=== PATIENT | male | born 1935 | race Caucasian/White ===

== ENCOUNTER → 2016-11-04 | Outpatient (REF) ==
[~2016-11-04] MED LIST: ALBUTEROL0.83 MG/ML IH; AMBIEN 5MG TABLE5 MG PO; ASPIRIN 32325 MG/TAB PO; ATROVENT I0.2 MG/1 M IH; BROVANA15 MCG/2 M IH; COREG 6.256.25 MG/TA PO; FLOMAX 0.40.4 MG/CAP PO; IMDUR 60MG60 MG/TAB PO; LORAINT PO; MELAT3MGTAB PO; Melatonin PO; NORVASC 5MG5 MG/TAB PO; PLAVIX 75MG TAB75 MG PO; PROAIR HFA0.09 MG/AC IH; PULMICORT0.5 MG/2 M IH; ROXANOL 20MG20 MG/ML SL; TYLENOL 500MG500 MG PO; ZOCOR 10MG10 MG PO
== END ==
LOC: ZLAB.WCH 15:03
DX: Z01.89 Encounter for other specified special examinations (principal)

== ENCOUNTER → 2016-11-05 | Outpatient (REF) ==
[2016-11-06] VITALS (35 sets, daily range): O2SAT 93–100
== END ==
LOC: ZLAB.WCH 16:52
DX: Z01.89 Encounter for other specified special examinations (principal)

== ENCOUNTER 2016-11-06 11:09 | Inpatient (IN) | payer MEDICARE, OTHER ==
[2016-11-06] VITALS (662 sets, daily range): BP systolic 100–122; BP diastolic 55–67; PULSE 98–108; TEMP 97.4–98.2; O2SAT 88–100
[~2016-11-06] VITALS: Ht 177.8 cm; Wt 68.6 kg
[2016-11-06] MEDS ORDERED: ALBUTEROL0.83 MG/ML IH (16:55)
[2016-11-06] MEDS ORDERED: BROVANA15 MCG/2 M IH (16:56)
[2016-11-06] MEDS ORDERED: PULMICORT0.5 MG/2 M IH (16:59)
[2016-11-06] MEDS ORDERED: COREG 6.256.25 MG/TA PO (16:59)
[2016-11-06] MEDS ORDERED: IMDUR 60MG60 MG/TAB PO (17:00)
[2016-11-06] MEDS ORDERED: ATROVENT I0.2 MG/1 M IH (17:00)
[2016-11-06] MEDS ORDERED: MELAT3MGTAB PO (17:01)
[2016-11-06] MEDS ORDERED: ZOCOR 10MG10 MG PO (17:01)
[2016-11-06] MEDS ORDERED: FLOMAX 0.40.4 MG/CAP PO (17:02)
[2016-11-06] MEDS ORDERED: AMBIEN 5MG TABLE5 MG PO (17:03)
[2016-11-06] MEDS ORDERED: TYLENOL 500MG500 MG PO (17:04)
[2016-11-06] MEDS ORDERED: PROAIR HFA0.09 MG/AC IH (17:05)
[2016-11-06] MEDS ORDERED: NORVASC 5MG5 MG/TAB PO (17:05)
[2016-11-06] MEDS ORDERED: PLAVIX 75MG TAB75 MG PO (17:06)
[2016-11-06] MEDS ORDERED: ASPIRIN 32325 MG/TAB PO (17:06)
[2016-11-07] VITALS (967 sets, daily range): BP systolic 107–128; BP diastolic 59–87; PULSE 75–107; TEMP 97.4–98.2; O2SAT 79–100
[2016-11-07 06:04] LABS: MEAN CELL VOLUME 89 fl (80.0-100.0); MEAN CORPUSCULAR HGB CONC 35 g/dl (33.0-37.0); MEAN PLATELET VOLUME 9.5 fl (7.4-10.4); PLATELET COUNT 233 K/mm3 (130-400); RED BLOOD COUNT 3.07 M/mm3 (4.20-5.60); REDCELL DISTRIBUTION WIDTH-CV 14.5 % (11.5-14.5); WHITE BLOOD COUNT 17.3 K/mm3 (4.8-10.8)
[2016-11-07 06:05] LABS: HEMATOCRIT 27.3 % (42.0-52.0); HEMOGLOBIN 9.5 g/dl (13.5-18.0); MEAN CORPUSCULAR HEMOGLOBIN 31 pg (27.0-31.0)
[2016-11-07 06:06] LABS: ADD PATHOLOGY DIFF REVIEW NO
[2016-11-07 06:22] LABS: BAND 10 % (0-10); NEUTROPHILS 86 % (42.0-75.2); TOTAL CELLS COUNTED 100
[2016-11-07 06:25] LABS: C-REACTIVE PROTEIN 0.9 mg/dL (0.0-0.9); CALCIUM 8.3 mg/dL (8.4-10.2); CREATININE, serum 0.67 mg/dL (0.66-1.25); MAGNESIUM 1.7 mg/dL (1.6-2.3); PHOSPHOROUS 2.8 mg/dL (2.5-4.5); POTASSIUM 3.7 mmol/L (3.4-5.0)
[2016-11-07] MEDS ORDERED: Melatonin PO (18:30)
[2016-11-08 03:42] VITALS: BP 136/63; PULSE 95; TEMP 97.8
[2016-11-08 08:40] VITALS: BP 124/71; PULSE 88; TEMP 98.6
[2016-11-08 12:14] VITALS: BP 128/72; PULSE 103; TEMP 97.3
[2016-11-08 13:04] LABS: ADD PATHOLOGY DIFF REVIEW NO
[2016-11-08 13:09] LABS: HEMATOCRIT 28.1 % (42.0-52.0); HEMOGLOBIN 9.6 g/dl (13.5-18.0); MEAN CELL VOLUME 90 fl (80.0-100.0); MEAN CORPUSCULAR HEMOGLOBIN 31 pg (27.0-31.0); MEAN CORPUSCULAR HGB CONC 34 g/dl (33.0-37.0); MEAN PLATELET VOLUME 9.6 fl (7.4-10.4); PLATELET COUNT 214 K/mm3 (130-400); RED BLOOD COUNT 3.11 M/mm3 (4.20-5.60); REDCELL DISTRIBUTION WIDTH-CV 14.5 % (11.5-14.5); WHITE BLOOD COUNT 9.4 K/mm3 (4.8-10.8)
[2016-11-08 13:25] LABS: CREATININE, serum 0.75 mg/dL (0.66-1.25); MAGNESIUM 1.9 mg/dL (1.6-2.3); POTASSIUM 3.6 mmol/L (3.4-5.0)
[2016-11-08 14:57] LABS: BAND 2 % (0-10); NEUTROPHILS 90 % (42.0-75.2); TOTAL CELLS COUNTED 100
[2016-11-08 16:04] VITALS: BP 122/88; PULSE 95; TEMP 97.4
[2016-11-08 21:26] VITALS: BP 148/62; PULSE 100; TEMP 98.6
[2016-11-09] VITALS (7 sets, daily range): BP systolic 13–152; BP diastolic 56–85; PULSE 74–108; TEMP 97.2–98
[2016-11-09 09:32] LABS: ADD PATHOLOGY DIFF REVIEW NO
[2016-11-09 09:38] LABS: MEAN CELL VOLUME 88 fl (80.0-100.0); MEAN CORPUSCULAR HGB CONC 35 g/dl (33.0-37.0); MEAN PLATELET VOLUME 9.4 fl (7.4-10.4); PLATELET COUNT 230 K/mm3 (130-400); RED BLOOD COUNT 3.46 M/mm3 (4.20-5.60); REDCELL DISTRIBUTION WIDTH-CV 13.9 % (11.5-14.5)
[2016-11-09 09:42] LABS: HEMATOCRIT 30.5 % (42.0-52.0); HEMOGLOBIN 10.6 g/dl (13.5-18.0); MEAN CORPUSCULAR HEMOGLOBIN 31 pg (27.0-31.0); WHITE BLOOD COUNT 22.9 K/mm3 (4.8-10.8)
[2016-11-09 10:33] LABS: BAND 1 % (0-10); EOSINOPHIL 1 % (0-4); NEUTROPHILS 91 % (42.0-75.2); TOTAL CELLS COUNTED 100
[2016-11-09 10:34] LABS: PLATELET ESTIMATE NORMAL (NORMAL)
[2016-11-10] VITALS (8 sets, daily range): BP systolic 118–1580; BP diastolic 54–82; PULSE 90–103; TEMP 97–97.4
[2016-11-10 07:50] LABS: MEAN CELL VOLUME 89 fl (80.0-100.0); MEAN CORPUSCULAR HGB CONC 35 g/dl (33.0-37.0); MEAN PLATELET VOLUME 9.6 fl (7.4-10.4); PLATELET COUNT 230 K/mm3 (130-400); RED BLOOD COUNT 3.87 M/mm3 (4.20-5.60); RETIC % 4.5 % (0.5-3.52)
[2016-11-10 08:17] LABS: HEMATOCRIT 34.3 % (42.0-52.0); HEMOGLOBIN 11.9 g/dl (13.5-18.0); MEAN CORPUSCULAR HEMOGLOBIN 31 pg (27.0-31.0); WHITE BLOOD COUNT 23.2 K/mm3 (4.8-10.8)
[2016-11-10 08:18] LABS: ADD PATHOLOGY DIFF REVIEW NO
[2016-11-10 09:09] LABS: BAND 5 % (0-10); EOSINOPHIL 1 % (0-4); NEUTROPHILS 83 % (42.0-75.2); PLATELET ESTIMATE NORMAL (NORMAL); TOTAL CELLS COUNTED 200
[2016-11-10 10:29] LABS: TOTAL IRON BINDING CAPACITY 320 ug/dL (261-462)
[2016-11-10 10:57] LABS: FERRITIN 75 ng/mL (18-464)
[2016-11-11] VITALS (177 sets, daily range): BP systolic 125–142; BP diastolic 51–84; PULSE 92–103; TEMP 97.1–98; O2SAT 89–100
[2016-11-11 08:43] LABS: MEAN CELL VOLUME 89 fl (80.0-100.0); MEAN CORPUSCULAR HGB CONC 34 g/dl (33.0-37.0); MEAN PLATELET VOLUME 9.6 fl (7.4-10.4); PLATELET COUNT 192 K/mm3 (130-400); RED BLOOD COUNT 3.53 M/mm3 (4.20-5.60); REDCELL DISTRIBUTION WIDTH-CV 14.1 % (11.5-14.5)
[2016-11-11 08:58] LABS: ADD PATHOLOGY DIFF REVIEW NO; HEMATOCRIT 31.3 % (42.0-52.0); HEMOGLOBIN 10.7 g/dl (13.5-18.0); MEAN CORPUSCULAR HEMOGLOBIN 30 pg (27.0-31.0); WHITE BLOOD COUNT 24.1 K/mm3 (4.8-10.8)
[2016-11-11 11:09] LABS: CALCIUM 8.1 mg/dL (8.4-10.2); CREATININE, serum 0.59 mg/dL (0.66-1.25)
[2016-11-11 11:21] LABS: POTASSIUM 2.8 mmol/L (3.4-5.0)
[2016-11-11 13:09] LABS: MAGNESIUM 1.2 mg/dL (1.6-2.3)
[2016-11-11 13:25] LABS: BAND 2 % (0-10); NEUTROPHILS 94 % (42.0-75.2); PLATELET ESTIMATE NORMAL (NORMAL)
[2016-11-11 13:26] LABS: TOTAL CELLS COUNTED 200
[2016-11-11 18:26] LABS: ARTERIAL BLD GAS O2 SATURATION 98.2 % (92-100); ARTERIAL BLD GAS TCO2 CT 27.8; ARTERIAL BLOOD GAS BASE EXCESS 1.1 (-2-2); ARTERIAL BLOOD GAS HCO3 26.4 meq/L (22-26); ARTERIAL BLOOD GAS PHT 7.38 C (7.35-7.45); ARTERIAL BLOOD GAS PO2 144.2 mmHg (80-100); ARTERIAL BLOOD GAS PO2T 144.2 (80-100); ARTERIAL BLOOD GAS pH 7.38 (7.35-7.45)
[2016-11-11 18:27] LABS: ALLEN TEST YES; ATS? YES
[2016-11-12] VITALS (771 sets, daily range): BP systolic 125–148; BP diastolic 56–82; PULSE 72–112; TEMP 97.3–98.5; O2SAT 85–100
[2016-11-12 05:29] LABS: ALLEN TEST YES; ALLENS TEST RESULT PASS; ARTERIAL BLD GAS O2 SATURATION 94.5 % (92-100); ARTERIAL BLD GAS TCO2 CT 30.6; ARTERIAL BLOOD GAS BASE EXCESS 4.9 (-2-2); ARTERIAL BLOOD GAS HCO3 29.3 meq/L (22-26); ARTERIAL BLOOD GAS PO2 74.2 mmHg (80-100); ARTERIAL BLOOD GAS pH 7.46 (7.35-7.45); ATS? YES
[2016-11-12 05:56] LABS: MEAN CELL VOLUME 90 fl (80.0-100.0); MEAN CORPUSCULAR HGB CONC 34 g/dl (33.0-37.0); MEAN PLATELET VOLUME 9.6 fl (7.4-10.4); PLATELET COUNT 193 K/mm3 (130-400); RED BLOOD COUNT 3.58 M/mm3 (4.20-5.60); REDCELL DISTRIBUTION WIDTH-CV 14.1 % (11.5-14.5); WHITE BLOOD COUNT 12.6 K/mm3 (4.8-10.8)
[2016-11-12 06:01] LABS: ADD PATHOLOGY DIFF REVIEW NO; HEMATOCRIT 32.2 % (42.0-52.0); HEMOGLOBIN 10.9 g/dl (13.5-18.0); MEAN CORPUSCULAR HEMOGLOBIN 30 pg (27.0-31.0)
[2016-11-12 06:20] LABS: CALCIUM 7.8 mg/dL (8.4-10.2); CREATININE, serum 0.63 mg/dL (0.66-1.25); POTASSIUM 3.6 mmol/L (3.4-5.0)
[2016-11-12 07:09] LABS: BAND 5 % (0-10); NEUTROPHILS 91 % (42.0-75.2); PLATELET ESTIMATE NORMAL (NORMAL); TOTAL CELLS COUNTED 100
[2016-11-13 03:37] VITALS: BP 142/91; PULSE 113; TEMP 97.5
[2016-11-13 07:38] VITALS: BP 167/76; PULSE 119; TEMP 98.3
[2016-11-13 08:29] LABS: POTASSIUM 3.2 mmol/L (3.4-5.0)
[2016-11-13 11:40] VITALS: BP 164/75; PULSE 108; TEMP 98.3
[2016-11-13 15:28] VITALS: BP 146/66; PULSE 99; TEMP 97.8
[2016-11-13 16:48] VITALS: BP 136/70; PULSE 97; TEMP 97.9
[2016-11-13 20:07] VITALS: BP 142/66; PULSE 96; TEMP 97.6
[2016-11-14] VITALS (15 sets, daily range): BP systolic 123–160; BP diastolic 52–85; PULSE 84–115; TEMP 97.4–99.4
[2016-11-14 07:32] LABS: MEAN CELL VOLUME 93 fl (80.0-100.0); MEAN CORPUSCULAR HGB CONC 33 g/dl (33.0-37.0); MEAN PLATELET VOLUME 9.8 fl (7.4-10.4); PLATELET COUNT 234 K/mm3 (130-400); RED BLOOD COUNT 3.45 M/mm3 (4.20-5.60); REDCELL DISTRIBUTION WIDTH-CV 14.8 % (11.5-14.5)
[2016-11-14 07:44] LABS: CALCIUM 8.5 mg/dL (8.4-10.2); CREATININE, serum 0.48 mg/dL (0.66-1.25); POTASSIUM 3.6 mmol/L (3.4-5.0)
[2016-11-14 08:01] LABS: HEMATOCRIT 31.9 % (42.0-52.0); HEMOGLOBIN 10.6 g/dl (13.5-18.0); MEAN CORPUSCULAR HEMOGLOBIN 31 pg (27.0-31.0); WHITE BLOOD COUNT 28.9 K/mm3 (4.8-10.8)
[2016-11-14 16:05] LABS: ALBUMIN 2.5 gm/dL (3.5-5.0); CALCIUM 7.8 mg/dL (8.4-10.2); CREATININE, serum 0.48 mg/dL (0.66-1.25); MAGNESIUM 1.9 mg/dL (1.6-2.3); PHOSPHOROUS 2.6 mg/dL (2.5-4.5); POTASSIUM 3.5 mmol/L (3.4-5.0); TOTAL PROTEIN 4.9 gm/dL (6.4-8.2)
[2016-11-15 01:01] VITALS: BP 150/72; PULSE 101; TEMP 97.7
[2016-11-15 05:47] VITALS: BP 151/71; PULSE 98; TEMP 96.7
[2016-11-15 07:43] LABS: MEAN CELL VOLUME 92 fl (80.0-100.0); MEAN CORPUSCULAR HGB CONC 33 g/dl (33.0-37.0); MEAN PLATELET VOLUME 10.1 fl (7.4-10.4); PLATELET COUNT 193 K/mm3 (130-400); RED BLOOD COUNT 3.32 M/mm3 (4.20-5.60); REDCELL DISTRIBUTION WIDTH-CV 14.4 % (11.5-14.5)
[2016-11-15 08:04] VITALS: BP 190/91; PULSE 115; TEMP 98.7
[2016-11-15 08:10] LABS: CALCIUM 8.4 mg/dL (8.4-10.2); CREATININE, serum 0.54 mg/dL (0.66-1.25); PHOSPHOROUS 2.3 mg/dL (2.5-4.5); POTASSIUM 3.6 mmol/L (3.4-5.0)
[2016-11-15 08:19] LABS: ADD PATHOLOGY DIFF REVIEW NO; HEMATOCRIT 30.5 % (42.0-52.0); HEMOGLOBIN 10.1 g/dl (13.5-18.0); MEAN CORPUSCULAR HEMOGLOBIN 30 pg (27.0-31.0); WHITE BLOOD COUNT 23.8 K/mm3 (4.8-10.8)
[2016-11-15 08:40] LABS: BAND 9 % (0-10); NEUTROPHILS 88 % (42.0-75.2); TOTAL CELLS COUNTED 100
[2016-11-15 11:49] VITALS: BP 131/69; PULSE 94; TEMP 97.9
[2016-11-15 14:44] VITALS: BP 167/86; PULSE 107; TEMP 97.7
[2016-11-15 21:05] VITALS: BP 132/63; PULSE 95; TEMP 97.5
[2016-11-16] VITALS (9 sets, daily range): BP systolic 118–180; BP diastolic 60–86; PULSE 106–124; TEMP 97.2–98.2
[2016-11-16 07:50] LABS: MEAN CELL VOLUME 92 fl (80.0-100.0); MEAN CORPUSCULAR HGB CONC 33 g/dl (33.0-37.0); MEAN PLATELET VOLUME 10.2 fl (7.4-10.4); PLATELET COUNT 188 K/mm3 (130-400); RED BLOOD COUNT 3.56 M/mm3 (4.20-5.60); REDCELL DISTRIBUTION WIDTH-CV 14.5 % (11.5-14.5)
[2016-11-16 08:06] LABS: ADJUSTED CALCIUM 9.1 mg/dL (8.4-10.2); ALBUMIN 2.8 gm/dL (3.5-5.0); CALCIUM 8.1 mg/dL (8.4-10.2); CREATININE, serum 0.44 mg/dL (0.66-1.25); MAGNESIUM 1.9 mg/dL (1.6-2.3); PHOSPHOROUS 3.1 mg/dL (2.5-4.5); POTASSIUM 3.7 mmol/L (3.4-5.0); TOTAL PROTEIN 5.3 gm/dL (6.4-8.2)
[2016-11-16 09:33] LABS: HEMATOCRIT 32.8 % (42.0-52.0); HEMOGLOBIN 10.8 g/dl (13.5-18.0); MEAN CORPUSCULAR HEMOGLOBIN 30 pg (27.0-31.0); WHITE BLOOD COUNT 34.2 K/mm3 (4.8-10.8)
[2016-11-16 09:34] LABS: ADD PATHOLOGY DIFF REVIEW NO
[2016-11-16 10:24] LABS: BAND 8 % (0-10); METAMYELOCYTE 1 % (0-0); NEUTROPHILS 87 % (42.0-75.2)
[2016-11-16 10:25] LABS: PLATELET ESTIMATE NORMAL (NORMAL)
[2016-11-16 10:26] LABS: TOTAL CELLS COUNTED 300
[2016-11-17] MEDS ORDERED: LORAINT PO (09:37)
[2016-11-17] MEDS ORDERED: ROXANOL 20MG20 MG/ML SL (09:37)
== END 2016-11-17 23:30 | disposition expired | DRG 163 ==
LOC: ICU 11:09 → MEDICAL 11:09 → IMCU 12:47 → MEDICAL 11-07 17:01 → ICU 11-11 19:10 → MEDICAL 11-12 12:37
PROVIDERS: Internal Medicine; Internal Medicine Pulmonary Disease; Nurse Practitioner Family; Physician Assistant
PROC: 0PS43ZZ Reposition Thoracic Vertebra, Percutaneous Approach (ICD-10-PCS; principal; 2016-11-10)
PROC: 0PU43JZ Supplement Thoracic Vertebra with Synthetic Substitute, Percutaneous Approach (ICD-10-PCS; 2016-11-10)
PROC: 0QS03ZZ Reposition Lumbar Vertebra, Percutaneous Approach (ICD-10-PCS; 2016-11-10)
PROC: 0QU03JZ Supplement Lumbar Vertebra with Synthetic Substitute, Percutaneous Approach (ICD-10-PCS; 2016-11-10)
PROC: 0B948ZZ Drainage of Right Upper Lobe Bronchus, Via Natural or Artificial Opening Endoscopic (ICD-10-PCS; 2016-11-14)
PROC: 0B958ZZ Drainage of Right Middle Lobe Bronchus, Via Natural or Artificial Opening Endoscopic (ICD-10-PCS; 2016-11-14)
PROC: 0B968ZZ Drainage of Right Lower Lobe Bronchus, Via Natural or Artificial Opening Endoscopic (ICD-10-PCS; 2016-11-14)
PROC: 0B988ZZ Drainage of Left Upper Lobe Bronchus, Via Natural or Artificial Opening Endoscopic (ICD-10-PCS; 2016-11-14)
PROC: 0B9B8ZZ Drainage of Left Lower Lobe Bronchus, Via Natural or Artificial Opening Endoscopic (ICD-10-PCS; 2016-11-14)
PROC: 0B968ZZ Drainage of Right Lower Lobe Bronchus, Via Natural or Artificial Opening Endoscopic (ICD-10-PCS; 2016-11-16)
PROC: 0B9B8ZZ Drainage of Left Lower Lobe Bronchus, Via Natural or Artificial Opening Endoscopic (ICD-10-PCS; 2016-11-16)
DX: J96.01 Acute respiratory failure with hypoxia (principal); J15.1 Pneumonia due to Pseudomonas; J69.0 Pneumonitis due to inhalation of food and vomit; Z51.5 Encounter for palliative care; Z66 Do not resuscitate; E43 Unspecified severe protein-calorie malnutrition; J44.0 Chronic obstructive pulmonary disease with (acute) lower respiratory infection; N39.0 Urinary tract infection, site not specified; J44.1 Chronic obstructive pulmonary disease with (acute) exacerbation; M80.88XA Other osteoporosis with current pathological fracture, vertebra(e), initial encounter for fracture; Z68.1 Body mass index [BMI] 19.9 or less, adult; A04.7 Enterocolitis due to Clostridium difficile; E87.1 Hypo-osmolality and hyponatremia; D62 Acute posthemorrhagic anemia; I10 Essential (primary) hypertension; I25.10 Atherosclerotic heart disease of native coronary artery without angina pectoris; R62.7 Adult failure to thrive; I73.9 Peripheral vascular disease, unspecified; Z95.820 Peripheral vascular angioplasty status with implants and grafts; E87.6 Hypokalemia
CPT/HCPCS: 99223-AI; 99232-AI; 99233-AI; C1713; C1751; J1200; J1450; J1644; J1650; J1815; J1940; J1956; J2060; J2185; J2270; J2543; J2704; J2920; J2930; J3010; J3475; J3480; J7030; J7050; J7120; J7131; J7512; Q9967